=== PATIENT | female | born 1955 | race Caucasian/White ===

== ENCOUNTER → 2018-09-07 13:10 | Outpatient (CLI) | payer OTHER, SELFPAY ==
--- NOTE | 2018-09-07 | DI.MRI.S_ITS ---
PROCEDURE: MR HAND LT WO/W CON INDICATIONS: Primary osteoarthritis bilateral hands TECHNIQUE: Coronal and axial T1 spin echo and T2 fast spin echo with fat saturation. Post-contrast coronal and axial T1 spin echo with fat saturation images through the left hand and wrist. COMPARISON: [facility], CR, XR HAND 3VW RT, 11/08/2016, 14:34. [facility], CR, XR HAND 3VW LT, 11/08/2016, 14:34. FINDINGS: Image quality: Excellent. Bones and cartilage: No marrow signal changes to suggest erosions. First CMC and triscaphe joint degeneration. Synovium: No definite focal abnormal synovial enhancement. Soft tissues: Mild radiocarpal and ulnocarpal joint fluid. There is also mild diffuse intercarpal effusion. No evidence of tenosynovitis. IMPRESSION: Mild diffuse radiocarpal, ulnocarpal and intercarpal joint fluid, which is asymmetric to the right hand although nonspecific. No marrow signal changes to suggest erosions. First CMC and triscaphe joint degeneration Dictated by: Wili Chavarria M.D. on 09/07/2018 at 16:53 Approved by: Wili Chavarria M.D. on 09/07/2018 at 17:00
--- NOTE | 2018-09-07 | DI.MRI.S_ITS ---
PROCEDURE: MR HAND RT WO/W CON INDICATIONS: Primary osteoarthritis bilateral hands TECHNIQUE: Coronal and axial T1 spin echo and T2 fast spin echo with fat saturation. Post-contrast coronal and axial T1 spin echo with fat saturation images through the right hand and wrist. COMPARISON: [facility], CR, XR HAND 3VW RT, 11/08/2016, 14:34. FINDINGS: Image quality: Excellent. Bones and cartilage: No marrow signal changes to suggest erosions identified. Synovium: Unremarkable appearance. No abnormal enhancement. Soft tissues: No joint effusions. No evidence of tenosynovitis. IMPRESSION: Negative examination. No evidence of active synovitis or erosions. Dictated by: Wili Chavarria M.D. on 09/07/2018 at 16:48 Approved by: Wili Chavarria M.D. on 09/07/2018 at 16:53
== END ==
PROVIDERS: PCP Specialist; Visit Provider Internal Medicine Rheumatology
DX: M19.041 Primary osteoarthritis, right hand (principal); M19.042 Primary osteoarthritis, left hand; M19.032 Primary osteoarthritis, left wrist; M18.12 Unilateral primary osteoarthritis of first carpometacarpal joint, left hand
CPT/HCPCS: 73220; A9579

== ENCOUNTER 2018-12-13 14:31 | Outpatient (CLI) | payer OTHER, SELFPAY ==
[2018-12-13] VITALS (8 sets, daily range): BP systolic 91–119; BP diastolic 50–85; PULSE 64–84; RESP 16–18; TEMP 36.4; O2SAT 71–100
--- NOTE | 2018-12-13 14:34 | DI.RAD.S_ITS ---
PROCEDURE: PAIN L/SI FACET INJ/BLK 1STL INDICATIONS: SACROCOCCYGEAL DISORDER FINDINGS: Fluoroscopic spot filming was performed to verify placement of spinal needles at the L5-S1 level(s), as labeled on the films. Appropriate location(s) of the needle tip(s) was confirmed by injection of iodinated contrast. IMPRESSION: Fluoroscopy for pain management. Dictated by: Phillip Goldberg M.D. on 12/13/2018 at 17:33 Approved by: Phillip Goldberg M.D. on 12/13/2018 at 17:34
--- NOTE | 2018-12-13 14:38 | DI.RAD.S_ITS ---
PROCEDURE: PAIN SI JOINT INJECTION INDICATIONS: SACROCOCCYGEAL DISORDER FINDINGS: Fluoroscopic spot filming was performed to verify placement of spinal needles at the left sacroiliac joint level(s), as labeled on the films. Appropriate location(s) of the needle tip(s) was confirmed by injection of iodinated contrast. IMPRESSION: Left SI joint injection under fluoroscopy. Dictated by: Phillip Goldberg M.D. on 12/13/2018 at 17:34 Approved by: Phillip Goldberg M.D. on 12/13/2018 at 17:34
[2018-12-13] MEDS: MIDAZOLAM 5 MG/5 ML VIAL IV (15:02)
[2018-12-13] MEDS: fentaNYL 100 MCG/2 ML INJ 50 MCG IV (15:03)
--- NOTE | 2018-12-13 15:08 | PC.NURSE ---
MD AWARE OF DECREASED BP.
[2018-12-13] MEDS: IOPAMIDOL 15 ML VIAL 3 ML INJ (15:09)
[2018-12-13] MEDS: BUPIVACAINE 0.5% (PF) VIAL 2 ML INJ (15:09)
[2018-12-13] MEDS: LIDOCAINE 1% 20 ML 10 ML INJ (15:09)
[2018-12-13] MEDS: BETAMETHASONE 30 MG/5 ML MDV 12 MG INJ (15:09)
--- NOTE | 2018-12-13 15:19 | PC.NURSE ---
ASSISTING PT OFF TABLE AND TRANSPORTING TO POST PROC AREA IN STABLE CONDITION. PASSING RN CARE OFF TO KELTON Ying RN.
--- NOTE | 2018-12-13 15:23 | P.PCN_ITS ---
Procedures Date/Time Date of procedure: 12/13/18 Time of procedure: 15:23 General Procedure description: PREOP Dx: Sacroiliac joint pain/DJD POST OP DX: Sacroiliac Joint Pain/DJD Procedures: Fluoroscopic guided contrast controlled left sacroiliac joint injection Physician: Rob Torres D.O. Indications: Dedra is referred by Dr. Singh for treatment of left sacroiliac joint DJD Description of procedure Fluoroscopic guided, contrast controlled left sacroiliac joint injection Following review of allergies and review of potential side effects and complications, including, but not necessarily limited to, infection, allergic re action, local tissue breakdown, temporary as well as permanent nerve injury, paralysis, stroke and possible , the patient indicated that they understood and agreed to proceed. An informed consent was signed by the patient, witnessed by a nurse, and placed in the patient's chart. Additionally, other treatment options including modalities, medications, and physical therapy were reviewed with the patient. After review of previous anaesthesic history and IV conscious sedation the patient was deemed safe to proceed with todays procedure with IV conscious sedation as ASA class II designation. Safety time-out was performed to confirm patient ID, procedure to be performed and site of procedure. IV sedation was accomplished with a combination of 3mg of Versed and 50mcg of Fentanyl administe red by the RN after DO order, titrated to patient comfort during the course of the procedure while the patient remained responsive to all verbal commands. In the prone position following sterile prep and drape of the pelvic region, the hyper lucency on in the inferior aspect of the left sacroiliac joint was identified fluoroscopically the skin was anesthetized be a 25 gauge 1 eventual with approximately 2 cc of 1% lidocaine solution. At this point, a 22 gauge 3 in spinal needle was atraumatically introduced and advanced under fluoroscopic guidance into the inferior aspect of the left sacroiliac joint. Following negative aspiration, approximately 0.3 cc of Isovue-300 was injected confirming intra-articular placement without vascular uptake. Radiographic data, including multiple fluoroscopic views of the pelvis, reveals a spinal needle in the left sacroiliac joint hyper lucent zone. Subsequent view show flow contrast tear superiorly and inferiorly within the joint capsule without vascular intrathecal uptake. At this point a total of 1cc or 0.5% Marcaine was combined with 1cc of 6mg of betamethasone was injected without incident. The patient tolerated the procedure well without signs or symptoms of complications prior to transfer to the recovery area for further monitoring. The patient was then transferred to the recovery area with a bur observed for an appropriate time after the injection. The patient reverted a vas score of 7 prior to the procedure and postprocedure vas of 1. Total fluoroscopy time: 22.7 sec Total conscious sedation time: 24 min Postop instructions The patient was provided with a pain like to continue to record the patient's response to the target specific procedure prior to the patient's follow-up visit with the referring physician. Additionally, specific post injection care instructions and a contact number to our office were provided if concerns arise regarding the possible complications associated with procedure are suspected. Rob Torres D.O. Complications: none
--- NOTE | 2018-12-13 15:24 | P.PCN_ITS ---
Procedures Date/Time Date of procedure: 12/13/18 Time of procedure: 15:24 General Procedure description: PREOP DIAGNOSIS 1. FACET ARTHROPATHY, 2. AXIAL LBP, 3. MULTILEVEL DDD, POST OP DIAGNOSIS 1. FACET ARTHROPATHY, 2. AXIAL LBP, 3. MULTILEVEL DDD, PROCEDURES 1. FLUORSCOPICALLY GUIDED CONTRAST CONTROLLED FACET JOINT INJECTIONS LEFT L5/S1 SURGEON: Rob Torres, DO INDICATIONS Dedra is referred by for treatment of Axial LBP FINDINGS Multilevel Facet Arthropathy with Clinically significant axial LBP DESCRIPTION OF PROCEDURE Fluoroscopically guided, contrast-controlled left L5/S1 facet joint injections. Following review of allergy and review of potential side effects and complications, including, but not necessarily limited to, infection, allergic reaction, local tissue breakdown, stroke, temporary or permanent nerve injury, paralysis, and possible , the patient indicated that the patient understood and agreed to proceed. An informed consent document was signed by the patient, witnessed by a nurse, and placed in the patient's chart. Additionally, other treatment options including medications, modalities, and physical therapy were reviewed with the patient. After review of previous anaesthesic history and IV conscious sedation the patient was deemed safe to proceed with todays procedure with IV conscious sedation as ASA class II designation. Safety time-out was performed to confirm patient ID, procedure to be performed and site of procedure. IV sedation was accomplished with a combination of 3mg of Versed and 50mcg of Fentanylwas administered by the RN after DO order, titrated to patient comfort during the course of the procedure while the patient remained responsive to all verbal commands. In the prone position, following sterile prep and drape of the lumbar region, the posterior aspect of the left L5/S1 facet joints were identified fluoroscopically. The skin was anesthetized via a 25-gauge 1.5-inch needle with 1% lidocaine solution into the corresponding facet joints. At this point, a 22- gauge 3.5-inch spinal needle was atraumatically introduced and advanced under fluoroscopic guidance into the corresponding facet joints. Following negative aspiration, injections of approximately 0.2-cc of Isovue 200 confirmed interarticular placement without vascular uptake. Radiological data, including multiple fluoroscopic views of the lumbosacral spine, reveal a spinal needle at the left L5/S1 facet joints. Subsequent views show flow of contrast material both superiorly and inferiorly within the joint space without vascular or intrathecal uptake. At this point, a total of 0.5 cc including a mixture of 0.25cc Marcaine and 0.25cc betamethasone was injected without complication into each of the corresponding facet joints. The procedure tolerated the procedure well without signs or symptoms of complications prior to transfer to the recovery area continued monitoring without incident. The patient was then transferred to the recovery area where they were observed for an appropriate period of time after the injection. The patient reported a VAS score of 7 prior to the procedure and a post-procedure VAS of 0. Total Fluoroscopy Time: 12.7 seconds Total Conscious Sedation Time: 24min POST OP INSTRUCTIONS The patient was provided a Pain Log to continue to record their response to the target-specific procedure prior to follow-up visit with their referring physician. Additionally, specific post-injection care instructions and a contact number to our office were provided if concerns arise regarding possible complications associated with the procedure are suspected. Rob Torres DO
--- NOTE | 2018-12-13 16:01 | PC.NURSE ---
Late entry: Nursing discharge note---VSS, O2 sat WNL on RA. no complaints of pain. Tolerating po without nausea. discharge instructions reviewed with patient and with good understanding. Discharged to home wheelchair to car with spouse. Johnathon Jimenes RN
== END 2018-12-13 15:45 ==
LOC: RAD 14:32
PROVIDERS: PCP Specialist; Visit Provider Physical Medicine & Rehabilitation
DX: M53.3 Sacrococcygeal disorders, not elsewhere classified (principal); M47.818 Spondylosis without myelopathy or radiculopathy, sacral and sacrococcygeal region; M47.817 Spondylosis without myelopathy or radiculopathy, lumbosacral region; M51.37 Other intervertebral disc degeneration, lumbosacral region; M54.5 Low back pain
CPT/HCPCS: 27096; 64493; 99152; J0702; J2250; J3010

== ENCOUNTER 2019-04-04 12:46 | Outpatient (CLI) | payer OTHER, SELFPAY ==
[2019-04-04] VITALS (8 sets, daily range): BP systolic 108–135; BP diastolic 42–69; PULSE 64–78; RESP 16; TEMP 36.9; O2SAT 96–100
--- NOTE | 2019-04-04 13:04 | DI.RAD.S_ITS ---
PROCEDURE: PAIN L/S FACET INJ/BLK 1ST MALLY COMPARISON: None. INDICATIONS: SPONDYLOSIS FINDINGS: Fluoroscopic spot filming was performed to verify placement of spinal needles at the L4, L5 level(s), as labeled on the films. Appropriate location(s) of the needle tip(s) was confirmed by injection of iodinated contrast. Dictated by: Wili Chavarria M.D. on 04/04/2019 at 16:31 Approved by: Wili Chavarria M.D. on 04/04/2019 at 16:34
[2019-04-04] MEDS: MIDAZOLAM 5 MG/5 ML VIAL IV (14:15)
[2019-04-04] MEDS: LIDOCAINE 1% 20 ML 5 ML INJ (14:23)
[2019-04-04] MEDS: BUPIVACAINE 0.5% (PF) VIAL 2 ML INJ (14:23)
[2019-04-04] MEDS: IOPAMIDOL 15 ML VIAL 3 ML INJ (14:23)
--- NOTE | 2019-04-04 14:28 | PC.NURSE ---
Post procedure transfer note: Patient medicated per providers orders. Tolerated procedure well. VSS throughout. Able to sit up and transfer to w/c with standby assist. Pain level 0/10. VSS prior to transfer stable. Handoff report given to Johnathon Joseph RN.
--- NOTE | 2019-04-04 14:31 | PM.PROC.1 ---
Procedures Date/Time Date of procedure: 04/04/19 Time of procedure: 14:31 General Procedure description: POST OP DIAGNOSIS 1. FACET ARTHROPATHY PROCEDURES 1. BILATERAL- L5 and S1 MB BLOCKS PHYSICIAN: DO LAYO Zimmerman Dedra is referred by for treatment of Bilateral Axial LBP. DESCRIPTION OF PROCEDURE Fluoroscopically guided, contrast-controlled bilateral L5 and S1 medial branch blocks with 0.5cc of 0.5% Marcaine. Following review of allergy and review of potential side effects and complications, including, but not necessarily limited to, infection, allergic reaction, local tissue breakdown, nerve injury, paralysis, stroke and possible , the patient indicated that the patient understood and agreed to proceed. An informed consent document was signed by the patient, witnessed by a nurse, and placed in the patient's chart. After review of previous anaesthesic history and IV conscious sedation the patient was deemed safe to proceed with todays procedure with IV conscious sedation as ASA class II designation. Safety time-out was performed to confirm patient ID, procedure to be performed and site of procedure. IV sedation was accomplished with a combination of 2mg of Versed and 50mcg of Fentanyl was administered by the RN after DO order, titrated to patient comfort during the course of the procedure while the patient remained responsive to all verbal commands In the prone position, following sterile prep and drape of the lumbar region, the right L5 and S1 anatomical location of the medial branch of the dorsal ramus was identified fluoroscopically. Subsequently an anesthetic skin wheal using 1% lidocaine solution was initiated at each of the anatomical spots. Subsequently then a 22-gauge 3.5-inch spinal needle was atraumatically introduced and advanced under fluoroscopic guidance at each of the corresponding sites at the right L5 and S1 MB. After negative aspiration, 0.2 cc of Isovue 200 was injected, confirming placement without vascular or intrathecal uptake. Subsequently then 0.5 cc of 0.5% Marcaine solution was injected at each of the corresponding sites at the right L5 and S1 medial branch locations. The identical procedure was replicated on the left. The patient tolerated the procedure well without signs or symptoms of complications. The patient tolerated the procedure well without signs or symptoms of complications prior to transfer to the recovery area continued monitoring without incident. Post-procedure, the patient was monitored initiating provocative activities to measure the amount of relief from block of the facetogenic pain. The patient reported a VAS of 7 prior to the procedure and a post-procedure VAS of 1. It has been a pleasure to assist in the diagnostic and therapeutic care of your patient. Total Fluoroscopy Time: 9 seconds Total Conscious Sedation Time: 24min POST OP INSTRUCTIONS The patient was provided with a Pain Log to complete over the next several hours and subsequent days prior to the patient's follow up with the ordering physician. If the patient has live games dealer relief to the solution applied, then they may be a candidate for medial branch rhizotomy. The patient is aware, was provided, once again, with a Pain Log and will follow up with the referring physician for review and clinical correlation Rob Torres DO Complications: none
--- NOTE | 2019-04-04 14:39 | PC.NURSE ---
ACCEPTED CARE OF PT IN POST PROC AREA IN STABLE CONDITION. VSS, A&OX4, STEADY ON FEET.
== END 2019-04-04 14:50 | disposition home or self-care (01) ==
PROVIDERS: PCP Specialist; Visit Provider Physical Medicine & Rehabilitation
DX: M47.817 Spondylosis without myelopathy or radiculopathy, lumbosacral region (principal)
CPT/HCPCS: 64493; 99152; J2250; J3010

== ENCOUNTER 2019-05-20 10:54 | Outpatient (CLI) | payer OTHER, SELFPAY ==
[2019-05-20] VITALS (10 sets, daily range): BP systolic 90–111; BP diastolic 43–59; PULSE 62–69; RESP 16–18; TEMP 36.1; O2SAT 99–100
--- NOTE | 2019-05-20 10:57 | DI.RAD.S_ITS ---
PROCEDURE: PAIN L/S MED/LAT N RFA BILAT INDICATIONS: SPONDYLOSIS FINDINGS: Fluoroscopic spot filming was performed to verify placement of spinal needles at the L5 and S1 level(s), as labeled on the films. Appropriate location(s) of the needle tip(s) was confirmed by injection of iodinated contrast. Dictated by: Wili Chavarria M.D. on 05/20/2019 at 13:51 Approved by: Wili Chavarria M.D. on 05/20/2019 at 13:53
[2019-05-20] MEDS: fentaNYL 100 MCG/2 ML INJ 50 MCG IV (12:09)
[2019-05-20] MEDS: MIDAZOLAM 5 MG/5 ML VIAL IV (12:09)
[2019-05-20] MEDS: LIDOCAINE 1% 20 ML 10 ML INJ (12:09)
[2019-05-20] MEDS: BUPIVACAINE 0.5% (PF) VIAL 2 ML INJ (12:19)
--- NOTE | 2019-05-20 12:34 | PC.NURSE ---
ASSISTING PT OFF TABLE AND TRANSPORTING TO POST PROC AREA IN STABLE CONDITION. PASSING RN CARE OF PT OFF TO EUSEBIO Willis RN.
--- NOTE | 2019-05-20 12:40 | P.PCN_ITS ---
Procedures Date/Time Date of procedure: 05/20/19 Time of procedure: 12:40 General Procedure description: Procedure Note PREOP DIAGNOSIS 1. RECALCITRANT FACET ARTHROPATHY, POST OP DIAGNOSIS 1. RECALCITRANT FACET ARTHROPATHY, PROCEDURES 1. BILATERAL L5 MEDIAL BRANCH RADIOFREQUENCY NEUROTOMY AND BILATERAL S1 DORSAL RAMUS BRANCH RADIOFREQUENCY NEUROTOMY. PHYSICIAN: Rob Torres, DO INDICATIONS Dedra is referred by Dr. Singh for treatment of facet arthropathy. DESCRIPTION OF PROCEDURE Bilateral L5 medial branch radiofrequency neurotomy and bilateral S1 dorsal ramus branch radiofrequency neurotomy under fluoroscopy with conscious sedation. The patient is well known to this clinic having undergone previous facet injections with good but temporary relief. The patient has experienced appropriate, concordant relief with previous facet and median branch blocks but the patient's pain has been recalcitrant to further conservative measures. Therefore, based upon the patient's relief and persistent symptoms, the patient is considered an appropriate candidate for facet rhizotomy. All of the patient's questions regarding the risks versus benefits of the procedure, including, but not limited to, bleeding, infection, temporary as well as lasting nerve injury, paralysis, stroke, and , as well treatment alternatives were answered to satisfaction. After obtaining informed consent, denial of pertinent drug allergies, as well as being made aware of the potential risks of bleeding, infection, spinal cord trauma, paralysis, temporary and permanent nerve damage, seizure, stroke, and possible , the patient was brought to the fluoroscopy suite and positioned prone on the fluoroscopy table. The lumbar region was prepped with Betadine and covered with a fenestrated drape in the usual sterile fashion. Appropriate monitors applied including pulse oximeter, pulse, and blood pressure for regular monitoring throughout the procedure. After review of previous anaesthesic history and IV conscious sedation the patient was deemed safe to proceed with todays procedure with IV conscious sedation as ASA class II designation. Safety time-out was performed to confirm patient ID, procedure to be performed and site of procedure. IV sedation was accomplished with a combination of 4mg of Versed and 50mcg of Fentanyl was administered by the RN after DO order, titrated to patient comfort during the course of the procedure while the patient remained responsive to all verbal commands. After local infiltration using 1% lidocaine, under fluoroscopic guidance, a 10- cm RF insulated needle with a 10-mm active tip was positioned parallel to the junction of the bilateral sacral ala and the superior articulating process where the S1 dorsal ramus resides. Needle placement was confirmed with motor stimulation of .5v on the right; motor stimulation of .6v on the left, which produced local stimulation without radicular component. The stimulation was then increased to 1.5v with, once again, only local multifidus stimulation without radicular component. This was then followed by two discreet lesions performed at 80 degrees Celsius for 90 seconds each. The needle was then removed and the identical procedure was performed along the length of the bilateral L5 medial branch with motor stimulation at .7v on the right; motor stimulation at .6v on the left. The patient tolerated the procedure well without signs or symptoms of complications prior to transfer to the recovery area continued monitoring without incident. The patient was then transferred to the recovery area where they were observed for an appropriate period of time after the injection. The patient reported a VAS score of 9 prior to the procedure and a post- procedure VAS of 0. Total Fluoroscopy Time: 15 seconds Total Conscious Sedation Time: 46min POST OP INSTRUCTIONS The patient was provided a Pain Log to continue to record the patient's response to the target-specific procedure prior to the patient's follow-up visit with the referring physician. Additionally, specific post-injection care instructions and a contact number to our office were provided if concerns arise regarding possible complications associated with the procedure are suspected. Rob Torres DO Complications: none
--- NOTE | 2019-05-21 12:09 | PC.NURSE ---
FOLLOW UP CALL MADE. PT STATES SHE FEELS FINE. DENIES QUESTIONS/CONCERNS. REMINDED PT TO CONTINUE WITH PAIN LOG AND OF OUR CLINIC NUMBER ON BACK IF SHE NEEDS US BEFORE FOLLOW-UP APPT. PT VERBALIZED UNDERSTANDING.
== END 2019-05-20 13:15 ==
LOC: RAD 10:57
PROVIDERS: PCP Specialist; Referring Provider Physical Medicine & Rehabilitation; Visit Provider Physical Medicine & Rehabilitation
DX: M47.817 Spondylosis without myelopathy or radiculopathy, lumbosacral region (principal)
CPT/HCPCS: 64635; 99152; J2250; J3010

== ENCOUNTER → 2019-09-02 10:15 | Outpatient (CLI) | payer OTHER, SELFPAY ==
[2019-09-03 08:50] LABS: COVID19 Sendout Not Detected (Not Detect)
== END ==
PROVIDERS: PCP Specialist; Visit Provider Nurse Practitioner
DX: Z01.812 Encounter for preprocedural laboratory examination (principal)
CPT/HCPCS: 87635

== ENCOUNTER 2019-09-05 13:13 | Outpatient (CLI) | payer OTHER, SELFPAY ==
[2019-09-05] VITALS (8 sets, daily range): BP systolic 104–132; BP diastolic 58–73; PULSE 66–83; RESP 16–17; TEMP 36.9; O2SAT 95–100
--- NOTE | 2019-09-05 13:15 | DI.RAD.S_ITS ---
PROCEDURE: PAIN L INTERLAMINAR/CAUDAL INJ INDICATIONS: SPONDYLOSIS FINDINGS: Fluoroscopic spot filming was performed to verify placement of spinal needles at the L5-S1 right-sided level, as labeled on the films. Appropriate location(s) of the needle tip(s) was confirmed by injection of iodinated contrast. IMPRESSION: Successful right-sided needle tip localization for L5-S1 translaminar epidural steroid injection. Dictated by: Mirza Lloyd M.D. on 09/05/2019 at 15:45 Approved by: Mirza Lloyd M.D. on 09/05/2019 at 15:46
--- NOTE | 2019-09-05 14:34 | PM.PROC.1 ---
Procedures Date/Time Date of procedure: 09/05/19 Time of procedure: 14:34 General Procedure description: PROVIDER: Rob Torres DO Operative Note PREOP DIAGNOSIS 1. HNP WITH RADICULAR FEATURES 2. MULTILEVEL CENTRAL STENOSIS POST OP DIAGNOSIS 1. HNP WITH RADICULAR FEATURES 2. MULTILEVEL CENTRAL STENOSIS PROCEDURES 1. FLUORSCOPICALLY GUIDED CONTRAST CONTROLLED INTERLAMINAR EPIDURAL STEROID INJECTION - L5/S1 PHYSICIAN: Rob Torres DO INDICATIONS Dedra is referred by for treatment of Bilateral Foraminal Stenosis L>R LE symptoms. FINDINGS Multilevel Central Spinal Stenosis with Nerve Root Compression DESCRIPTION OF PROCEDURE Fluoroscopically guided, contrast-controlled L5/S1 translaminar epidural steroid injection. Following review of allergy and review of potential side effects and complications, including, but not necessarily limited to, infection, allergic reaction, local tissue breakdown, temporary as well as permanent nerve injury, paralysis, stroke and possible , the patient indicated that the patient understood and agreed to proceed. An informed consent document was signed by the patient, witnessed by a nurse, and placed in the patient's chart. Additionally, other treatment options including modalities, medications, and physical therapy were reviewed with the patient. After review of previous anaesthesic history and IV conscious sedation the patient was deemed safe to proceed with todays procedure with IV conscious sedation as ASA class II designation. Safety time-out was performed to confirm patient ID, procedure to be performed and site of procedure. IV sedation was accomplished with a combination of 2mg of Versed and 50mcg of Fentanyl administered by the RN after DO order, titrated to patient comfort during the course of the procedure while the patient remained responsive to all verbal commands. In the prone position, following sterile prep and drape of the lumbar region, the L5/S1 translaminar space was identified fluoroscopically. The skin was anesthetized via a 25-gauge, 1.5-inch needle with 1% lidocaine solution. At this point, a 22-gauge short bevel spinal needle was atraumatically introduced and advanced under fluoroscopic guidance into the region of the L5/S1 translaminar space. Depth was confirmed on lateral view. Radiological data, including multiple fluoroscopic views of the lumbar spine, reveal a spinal needle at the L5/S1 translaminar space. Lateral views then show placement of the needle in the epidural space. Subsequent views show contrast material flowing superiorly and inferiorly in the epidural space. No vascular or intrathecal uptake is observed. At this point, using loss of resistance technique with saline and air, the epidural space was entered. This was confirmed following negative aspiration with injection of approximately 1.5cc of Isovue 200, showing excellent epidural flow without vascular or intrathecal uptake. At this point, 1cc of 1% lidocaine solution combined with 3cc or 20mg of dexamethasone and 6mg of betamethasone was injected without incident. The patent tolerated the procedure without signs of symptoms of complications prior to transfer to the recovery area for further monitoring. The patient was then transferred to the recovery area where they were observed for an appropriate period of time after the injection. The patient reported a VAS score of 6 prior to the procedure and a post-procedure VAS of 0. Total Fluoroscopy Time: 6 seconds Total Conscious Sedation Time: 24min POST OP INSTRUCTIONS The patient was provided a Pain Log to continue to record their response to the target-specific procedure prior to follow-up visit with their referring physician. Additionally, specific post-injection care instructions and a contact number to our office were provided if concerns arise regarding possible complications associated with the procedure are suspected. Rob Torres DO Complications: none
== END 2019-09-05 15:09 | disposition home or self-care (01) ==
LOC: RAD 13:15
PROVIDERS: PCP Specialist; Referring Provider Physical Medicine & Rehabilitation; Visit Provider Physical Medicine & Rehabilitation
DX: M51.17 Intervertebral disc disorders with radiculopathy, lumbosacral region (principal); M48.07 Spinal stenosis, lumbosacral region
CPT/HCPCS: 62323; 99152; J0702; J1100; J2250; J3010

== ENCOUNTER → 2019-11-28 15:36 | Outpatient (CLI) | payer OTHER, SELFPAY ==
--- NOTE | 2019-11-28 15:38 | DI.MRI.S_ITS ---
PROCEDURE: MR LUMBAR SPINE WO CON INDICATIONS: POST FUSION SYNDROME TECHNIQUE: Noncontrast sagittal T1 spin echo and T2 fast echo, sagittal STIR, axial T1 and T2 fast spin echo through the lumbar spine. In cases with scoliosis, additional coronal T2 fast spin echo may be performed. COMPARISON: [facility], MR, MR LUMBAR SPINE WITHOUT CONTRAST, 11/08/2017, 14:27. FINDINGS: Image quality: Excellent. Alignment and Curvature: There is normal bony alignment. Bone Marrow: Marrow is of normal overall signal. No acute vertebral body compression fractures. Spinal Cord: Conus medullaris terminates at the L1 level. Visualized cord demonstrates normal signal and size. Paraspinous Soft Tissues: No paravertebral masses. T12-L1: Normal appearance. L1-L2: No significant abnormality is seen. L2-L3: The disc height is well-preserved. Loss of disc signal is seen at this level. Moderate generalized disc bulge is seen. Moderate bilateral neural foraminal narrowing is seen. Moderate central canal narrowing is seen. These imaging findings have progressed compared to the prior study. L3-L4: Postoperative changes are seen at this level, with right-sided vertebral screws. A disc spacer is seen at this level. Postoperative changes are seen posteriorly, with a spinous process fusion device also seen. There is associated susceptibility artifact. Mild to moderate disc bulge is seen. There is minimal right-sided and [id number] left-sided neural foraminal narrowing seen. Mild central canal narrowing is seen. When comparison is made with the prior examination, these findings are similar. L4-L5: Postoperative changes are seen, with a disc spacer. Mild to moderate disc bulge is seen. There is mild to moderate right-sided and no left-sided neural foraminal narrowing seen. No significant central canal narrowing is seen. When comparison is made with the prior examination, these findings are similar. L5-S1: The disc height and disk signal are well-preserved. Mild generalized disc bulge is seen. There is mild right-sided and no left-sided neural foraminal narrowing seen. No significant central canal narrowing is seen. When comparison is made with the prior examination, these findings are minimally progressed. IMPRESSION: Unremarkable postoperative hardware. Multiple levels of degenerative change are seen, which are mildly progressed at L2-L3 and L5-S1 compared to 2018. Dictated by: Devon Dennison M.D. on 11/28/2019 at 17:54 Approved by: Devon Dennison M.D. on 11/28/2019 at 18:01
== END ==
PROVIDERS: PCP Specialist; Referring Provider Physical Medicine & Rehabilitation; Visit Provider Physical Medicine & Rehabilitation
DX: M47.26 Other spondylosis with radiculopathy, lumbar region (principal); M47.27 Other spondylosis with radiculopathy, lumbosacral region; Z98.1 Arthrodesis status
CPT/HCPCS: 72148

== ENCOUNTER → 2020-01-22 12:18 | Outpatient (CLI) | payer MEDICARE, OTHER, SELFPAY ==
--- NOTE | 2020-01-22 12:21 | DI.RAD.S_ITS ---
PROCEDURE: XR LUMBAR SPINE MIN 4V INDICATIONS: update imaging TECHNIQUE: 5 views of the lumbar spine were acquired. COMPARISON: None. FINDINGS: Bones: 5 nonrib-bearing vertebrae are present. There is normal bony alignment maintained by sacroiliac joint fixation devices on the right and L3-L4 fixation devices both anteriorly and posteriorly. No vertebral body compression fractures. No suspicious bony lesions. Soft tissues: Overlying bowel gas pattern is normal. No suspicious soft tissue calcifications. Oblique images: No pars defects. IMPRESSION: No acute disease. Prior fracture fixation or orthopedic spine alignment surgery as noted. Dictated by: Mirza Lloyd M.D. on 01/22/2020 at 15:54 Approved by: Mirza Lloyd M.D. on 01/22/2020 at 15:56
== END ==
PROVIDERS: PCP Specialist; Referring Provider Physical Medicine & Rehabilitation; Visit Provider Physical Medicine & Rehabilitation
DX: M47.817 Spondylosis without myelopathy or radiculopathy, lumbosacral region (principal); M96.1 Postlaminectomy syndrome, not elsewhere classified
CPT/HCPCS: 72110; 99214

== ENCOUNTER 2020-02-04 09:59 | Outpatient (CLI) | payer MEDICARE, OTHER, SELFPAY ==
[2020-02-04] VITALS (11 sets, daily range): BP systolic 102–130; BP diastolic 49–67; PULSE 59–84; RESP 12–18; TEMP 36.1; O2SAT 95–100
--- NOTE | 2020-02-04 10:00 | DI.RAD.S_ITS ---
PROCEDURE: PAIN L INTERLAMINAR/CAUDAL INJ INDICATIONS: SPONDYLOSIS COMPARISON: [facility], XA, PAIN L INTERLAMINAR/CAUDAL INJ, 09/05/2019, 13:23. FINDINGS: Fluoroscopic spot filming was performed to verify placement of spinal needles at the left paramedian interlaminar L2-L3 level(s), as labeled on the films. Appropriate location(s) of the needle tip(s) was confirmed by injection of iodinated contrast. IMPRESSION: Successful needle tip localization to the left of midline for L2-L3 posterior approach translaminar epidural steroid injection. Dictated by: Mirza Lloyd M.D. on 02/04/2020 at 11:44 Approved by: Mirza Lloyd M.D. on 02/04/2020 at 11:45
[2020-02-04] MEDS: fentaNYL 100 MCG/2 ML INJ 50 MCG IV ×2 (11:04→11:15)
[2020-02-04] MEDS: IOPAMIDOL 15 ML VIAL 3 ML INJ (11:11)
[2020-02-04] MEDS: methylPREDNISolone acetate 80 MG/ML VIAL INJ (11:12)
[2020-02-04] MEDS: BUPIVACAINE 0.25% (PF) VIAL 2 ML INJ (11:12)
[2020-02-04] MEDS: BETAMETHASONE 30 MG/5 ML MDV 6 MG INJ (11:12)
[2020-02-04] MEDS: MIDAZOLAM 5 MG/5 ML VIAL IV (11:15)
--- NOTE | 2020-02-04 11:22 | P.PCN_ITS ---
Date/Time/Diagnoses Date of procedure: 02/04/20 Time of procedure: 11:23 Pre-procedure diagnosis: 1. HNP WITH RADICULAR FEATURES, 2. MULTILEVEL CENTRAL STENOSIS, Post-procedure diagnosis: same Procedure Notes Procedure: 1. FLUOROSCOPICALLY GUIDED CONTRAST CONTROLLED INTERLAMINAR EPIDURAL STEROID INJECTION - L2/3 Indications: Dedra is referred by Dr. Singh for treatment of Bilateral Foraminal Stenosis L>R LE symptoms. Physician: Rob Torres Total Fluoroscopy time (seconds): 15 Total sedation minutes: 11 Complications: none Procedure in detail & Post-procedure care: FINDINGS Multilevel Central Spinal Stenosis with Nerve Root Compression DESCRIPTION OF PROCEDURE Fluoroscopically guided, contrast-controlled L2/3 translaminar epidural steroid injection. Following review of allergy and review of potential side effects and complications, including, but not necessarily limited to, infection, allergic reaction, local tissue breakdown, temporary as well as permanent nerve injury, paralysis, stroke and possible , the patient indicated that the patient understood and agreed to proceed. An informed consent document was signed by the patient, witnessed by a nurse, and placed in the patient's chart. Additionally, other treatment options including modalities, medications, and physical therapy were reviewed with the patient. After review of previous anaesthesic history and IV conscious sedation the patient was deemed safe to proceed with today?s procedure with IV conscious sedation as ASA class II designation. Safety time-out was performed to confirm p atient ID, procedure to be performed and site of procedure. IV sedation was accomplished with a combination of 3mg Versed and 100mcg of Fentanyl administered by the RN after DO order, titrated to patient comfort during the course of the procedure while the patient remained responsive to all verbal commands. In the prone position, following sterile prep and drape of the lumbar region,the L2/3 translaminar space was identified fluoroscopically. The skin was anesthetized via a 25-gauge, 1.5-inch needle with 1% lidocaine solution. At this point, a 22-gauge short bevel spinal needle was atraumatically introduced and advanced under fluoroscopic guidance into the region of the L2/3 translaminar space. Depth was confirmed on lateral view. Radiological data, including multiple fluoroscopic views of the lumbar spine, reveal a spinal needle at the L2/3 translaminar space. Lateral views then show placement of the needle in the epidural space. Subsequent views show contrast material flowing superiorly and inferiorly in the epidural space. No vascular or intrathecal uptake is observed. At this point, using loss of resistance technique with saline and air, the epidural space was entered. This was confirmed following negative aspiration with injection of approximately 1.5 cc of Isovue 200, showing excellent epidural flow without vascular or intrathecal uptake. At this point, 1cc of 1% lidocaine solution combined with 3cc or 80mg of depomedrol and 12mg of betamethasone was injected without incident. The patient tolerated the procedure well without signs or symptoms of comp lications prior to transfer to the recovery area continued monitoring without incident. The patient was then transferred to the recovery area where they were observed for an appropriate period of time after the injection. The patient reported a VAS score of 6 prior to the procedure and a post-procedure VAS of 0. POST OP INSTRUCTIONS The patient was provided a Pain Log to continue to record their response to the target-specific procedure prior to follow-up visit with their referring physician. Additionally, specific post-injection care instructions and a contact number to our office were provided if concerns arise regarding possible complications associated with the procedure are suspected.
== END 2020-02-04 11:47 | disposition home or self-care (01) ==
LOC: RAD 09:59
PROVIDERS: PCP Specialist; Referring Provider Specialist; Visit Provider Physical Medicine & Rehabilitation
DX: M51.16 Intervertebral disc disorders with radiculopathy, lumbar region (principal); M48.061 Spinal stenosis, lumbar region without neurogenic claudication
CPT/HCPCS: 62323; 99152; J0702; J1040; J1100; J2250; J3010